=== PATIENT | female | born 1970 | race Caucasian/White ===

== ENCOUNTER 2022-06-04 04:24 | Day surgery (SDC) | payer OTHER ==
[2022-06-03 13:25] VITALS: BMI 26.9
[2022-06-04] MEDS ORDERED: BUPIVACAINE HCL/PF 0.25% (2.5MG/ML) 10 ML VIAL ONE (07:49)
[2022-06-04] MEDS ORDERED: TRIAMCINOLONE ACET 40MG/1ML VIAL ONE (07:49)
[2022-06-04] MEDS ORDERED: BUPIVACAINE HCL/PF 0.5% (5MG/ML) 10 ML VIAL ONE (07:49)
[2022-06-04] MEDS ORDERED: LIDOCAINE HCL/PF 1% SDV 5ML VIAL ONE (07:50)
[2022-06-04 11:27] VITALS: RESP 20
[2022-06-04] MEDS ORDERED: LIDOCAINE 1% P/F 10 MG/ML VIAL INF ONE (12:20)
[2022-06-04] MEDS ORDERED: IOHEXOL 180 MG/1 ML ML IJ ONE (12:20)
[2022-06-04] MEDS ORDERED: BUPIVACAINE HCL/PF 0.5% (5 MG/ML) 30 ML VIAL IJ ONE (12:21)
[2022-06-04] MEDS ORDERED: TRIAMCINOLONE ACET 40MG/1ML VIAL IM ONE (12:21)
[2022-06-04 13:17] VITALS: BP 140/70; PULSE 80; TEMP 98
== END 2022-06-04 12:50 | disposition home or self-care (01) ==
LOC: JASU-SURG 04:24
PROVIDERS: ATTEND Pain Medicine Pain Medicine
PROC: 3E0U3BZ Introduction of Anesthetic Agent into Joints, Percutaneous Approach (ICD-10-PCS; 2022-06-04)
PROC: 3E0U33Z Introduction of Anti-inflammatory into Joints, Percutaneous Approach (ICD-10-PCS; principal; 2022-06-04 12:00)
DX: M25.552 Pain in left hip (principal)
CPT/HCPCS: 76000-TC-FY

== ENCOUNTER 2022-11-16 04:03 | Day surgery (SDC) | payer OTHER ==
[2022-11-11 17:57] VITALS: BMI 27.4
[~2022-11-16 04:03] MED LIST: BUPIVACAINE HCL/PF 0.5% (5 MG/ML) 30 ML VIAL IJ ONE; IOHEXOL 180 MG/1 ML ML IJ ONE; LIDOCAINE 1% P/F 10 MG/ML VIAL INF ONE; TRIAMCINOLONE ACET 40MG/1ML VIAL IM ONE
[2022-11-16] MEDS ORDERED: TRIAMCINOLONE ACET 40MG/1ML VIAL ONE (08:23)
[2022-11-16] MEDS ORDERED: BUPIVACAINE HCL/PF 0.25% (2.5MG/ML) 10 ML VIAL ONE (08:23)
[2022-11-16] MEDS ORDERED: BUPIVACAINE HCL/PF 0.5% (5MG/ML) 10 ML VIAL ONE (08:23)
[2022-11-16] MEDS ORDERED: LIDOCAINE HCL/PF 1% SDV 5ML VIAL ONE (08:24)
[2022-11-16] MEDS ORDERED: ACETAMINOPHEN 500 MG TABLET (FP) PO PRN (10:46)
[2022-11-16] MEDS ORDERED: IOHEXOL 180 MG/1 ML ML IJ ONE ×2 (13:02)
[2022-11-16] MEDS ORDERED: LIDOCAINE 1% P/F 10 MG/ML VIAL INF ONE ×2 (13:02)
[2022-11-16] MEDS ORDERED: TRIAMCINOLONE ACET 40MG/1ML VIAL IM ONE ×2 (13:04)
[2022-11-16] MEDS ORDERED: BUPIVACAINE HCL/PF 0.5% (5 MG/ML) 30 ML VIAL IJ ONE (13:04)
[2022-11-16 18:51] VITALS: RESP 16; TEMP 97.3
[2022-11-16 18:53] VITALS: BP 150/70; PULSE 80
== END 2022-11-16 13:30 | disposition home or self-care (01) ==
LOC: JASU-SURG 04:03
PROVIDERS: ATTEND Pain Medicine Pain Medicine
PROC: 3E0U3BZ Introduction of Anesthetic Agent into Joints, Percutaneous Approach (ICD-10-PCS; 2022-11-16)
PROC: 3E0U33Z Introduction of Anti-inflammatory into Joints, Percutaneous Approach (ICD-10-PCS; principal; 2022-11-16 13:30)
DX: M16.12 Unilateral primary osteoarthritis, left hip (principal)
CPT/HCPCS: 76000-TC-FY

== ENCOUNTER 2023-01-23 01:23 | Emergency (ER) | payer OTHER ==
[2023-01-23 01:30] VITALS: RESP 20; TEMP 98.1; BMI 25.7
[2023-01-23] MEDS ORDERED: NITROGLYCERIN SUBLINGUAL 1/150 0.4 MG TAB SL ONE (01:45)
[2023-01-23 01:56] VITALS: PULSE 102
[2023-01-23 02:10] LABS: BASO % 0.5 % (0-2.0); EOS % 0.6 % (0-4.5); HEMOGLOBIN 15.4 GM/dL (10.7-15.3); LYMPH % 49.7 % (8-40); MCHC 33.5 g/dl (32.0-36.0); MEAN CELL VOLUME 89.5 fl (80-96); MONO % 6.7 % (3.8-10.2); NEUT % 42.5 % (42.8-82.8); PLATELET COUNT 413 10^3/uL (134-434); RBC 5.13 M/mm3 (3.60-5.2); RDW 13.5 % (11.6-15.6); WHITE BLOOD COUNT 11.1 K/mm3 (4.0-10.0)
[2023-01-23] MEDS ORDERED: NITROGLYCERIN SUBLINGUAL 1/150 0.4 MG TAB ONE (02:24)
[2023-01-23 02:31] LABS: POTASSIUM 3.9 mmol/L (3.5-5.1)
[2023-01-23 02:33] LABS: BLOOD UREA NITROGEN 15.6 mg/dL (7-18)
[2023-01-23 02:37] LABS: CREATININE 0.8 mg/dL (0.55-1.3)
[2023-01-23 02:38] LABS: BILIRUBIN,TOTAL 0.3 mg/dL (0.2-1); TOT PROT 7.8 g/dl (6.4-8.2)
[2023-01-23 02:56] LABS: CALCIUM 9.8 mg/dL (8.5-10.1)
[2023-01-23 03:18] VITALS: BP 171/93
[2023-01-23 04:19] LABS: EPI CELLS 2 /uL (0-25.1); HYALINE CASTS 0 /uL (0-3.1); URINE APPEARANCE CLEAR; URINE BACTERIA 7 /uL (0-1359); URINE BILIRUBIN NEGATIVE (NEGATIVE); URINE COLOR YELLOW; URINE GLUCOSE (UA) NEGATIVE (NEGATIVE); URINE KETONE NEGATIVE (NEGATIVE); URINE LEUK ESTERASE NEGATIVE (NEGATIVE); URINE NITRITE NEGATIVE (NEGATIVE); URINE PROTEIN NEGATIVE (NEGATIVE); URINE RBC 74 /uL (0-23.9); URINE UROBILINOGEN 0.2 mg/dL (0.2-1.0); URINE WBC 2 /uL (0-25.8)
== END 2023-01-23 04:59 | disposition home or self-care (01) ==
LOC: JER 01:23
DX: I10 Essential (primary) hypertension (principal)
CPT/HCPCS: 36415; 80053; 81003; 84484; 85025; 93005; 93010; 99284-25

== ENCOUNTER 2023-07-08 05:02 | Day surgery (SDC) | payer OTHER ==
[2023-07-06 11:49] VITALS: BMI 25.9
[2023-07-08] MEDS ORDERED: LIDOCAINE HCL/PF 1% SDV 5ML VIAL ONE (07:25)
[2023-07-08] MEDS ORDERED: TRIAMCINOLONE ACET 40MG/1ML VIAL ONE (07:25)
[2023-07-08] MEDS ORDERED: BUPIVACAINE HCL/PF 0.5% (5MG/ML) 10 ML VIAL ONE (07:25)
[2023-07-08 08:43] VITALS: RESP 18; TEMP 97.1
[2023-07-08] MEDS ORDERED: TRIAMCINOLONE ACETONIDE 40 MG/ML 10 ML VIAL IJ ONE (09:57)
[2023-07-08] MEDS ORDERED: LIDOCAINE HCL 1%, 10 MG/ML (20ML VIAL) INF ONE (09:57)
[2023-07-08] MEDS ORDERED: BUPIVACAINE HCL/PF 0.5% (5MG/ML) 10 ML VIAL IJ ONE (09:57)
[2023-07-08] MEDS ORDERED: IOHEXOL 180 MG/1 ML ML IJ ONE (09:57)
[2023-07-08] MEDS ORDERED: ACETAMINOPHEN 500 MG TABLET (FP) PO PRN (10:20)
[2023-07-08 10:43] VITALS: BP 147/84; PULSE 75
== END 2023-07-08 10:43 | disposition home or self-care (01) ==
LOC: JASU-SURG 05:02
PROVIDERS: ATTEND Pain Medicine Pain Medicine
PROC: 3E0U3BZ Introduction of Anesthetic Agent into Joints, Percutaneous Approach (ICD-10-PCS; 2023-07-08)
PROC: 3E0U33Z Introduction of Anti-inflammatory into Joints, Percutaneous Approach (ICD-10-PCS; principal; 2023-07-08 09:30)
DX: M25.552 Pain in left hip (principal)
CPT/HCPCS: 76000-TC-FY; 81025

== ENCOUNTER 2023-11-25 03:40 | Day surgery (SDC) | payer OTHER ==
[2023-11-21 10:54] VITALS: BMI 29.2
[2023-11-25] MEDS ORDERED: LIDOCAINE HCL/PF 1% SDV 5ML VIAL ONE (06:58)
[2023-11-25] MEDS: LIDOCAINE 1% P/F 10 MG/ML VIAL INF ONE ×3 (08:29)
[2023-11-25 08:52] VITALS: RESP 18
[2023-11-25 09:34] VITALS: BP 155/86; PULSE 78; TEMP 97.6
[2023-11-25] MEDS ORDERED: ACETAMINOPHEN 500 MG TABLET (FP) PO PRN (14:44)
== END 2023-11-25 10:09 | disposition home or self-care (01) ==
LOC: JASU-SURG 03:40
PROVIDERS: ATTEND Pain Medicine Pain Medicine
PROC: 01HY3MZ Insertion of Neurostimulator Lead into Peripheral Nerve, Percutaneous Approach (ICD-10-PCS; principal; 2023-11-25 08:00)
DX: G89.4 Chronic pain syndrome (principal); M25.552 Pain in left hip
CPT/HCPCS: 64555; C1778; 76000-TC-FY

== ENCOUNTER 2024-03-09 04:01 | Day surgery (SDC) | payer OTHER ==
[2024-03-08 09:01] VITALS: BMI 27.8
[2024-03-09] MEDS ORDERED: TRIAMCINOLONE ACET 40MG/1ML VIAL ONE (07:22)
[2024-03-09] MEDS ORDERED: LIDOCAINE HCL 1%, 10 MG/ML (20ML VIAL) ONE (07:22)
[2024-03-09] MEDS ORDERED: LIDOCAINE HCL/PF 1% SDV 5ML VIAL ONE (07:23)
[2024-03-09] MEDS ORDERED: BUPIVACAINE HCL/PF 0.5% (5MG/ML) 10 ML VIAL ONE (07:23)
[2024-03-09] MEDS: IOHEXOL 180 MG/1 ML ML IJ ONE ×2 (10:07)
[2024-03-09] MEDS: BUPIVACAINE HCL/PF 0.5% (5 MG/ML) 30 ML VIAL IJ ONE ×2 (10:07)
[2024-03-09] MEDS: LIDOCAINE HCL 1% PRESERVATIVE FREE - 30ML VIAL IJ ONE ×2 (10:07)
[2024-03-09] MEDS: TRIAMCINOLONE ACET 40MG/1ML VIAL IJ ONE ×2 (10:07)
[2024-03-09 11:03] VITALS: BP 152/75; PULSE 66; RESP 17; TEMP 97.5
== END 2024-03-09 10:26 | disposition home or self-care (01) ==
LOC: JASU-SURG 04:01
PROVIDERS: ATTEND Pain Medicine Pain Medicine
PROC: 3E0U3BZ Introduction of Anesthetic Agent into Joints, Percutaneous Approach (ICD-10-PCS; 2024-03-09)
PROC: 3E0U33Z Introduction of Anti-inflammatory into Joints, Percutaneous Approach (ICD-10-PCS; principal; 2024-03-09 09:30)
DX: M25.552 Pain in left hip (principal)
CPT/HCPCS: 76000-TC-FY; 77002-TC-FY